=== PATIENT | female | born 1990 | race Caucasian/White ===

== ENCOUNTER 2016-07-23 17:27 | Emergency (ER) | payer OTHER ==
--- NOTE | 2016-07-23 20:23 | RAD ---
INDICATION: Left ankle injury COMPARISON: None TECHNIQUE: AP, lateral, and oblique views were obtained. FINDINGS: There is no acute fracture or dislocation. There is bilateral soft tissue swelling. IMPRESSION: LATERAL SOFT TISSUE SWELLING
--- NOTE | 2016-07-23 20:58 | UC ---
Lower Extremity/Ankle HPI - HPI Summary HPI Summary: PREVIOUS HISTORY OF LATERAL ANKLE STRESS FRACTURE. FOR TEN DAYS HAS HAD LATERAL ANKLE SWELLING AND DISCOMFORT. NO KNOWN TRAUMA. WORKS ON [employer]. NO SOB. NO CHEST PAIN. NO UNUSUAL HEART RHYTHMS. NO CALF PAIN. NO FEVERS. NO KNEE PAIN. - History of Current Complaint Chief Complaint: UCLowerExtremity Stated Complaint: FOOT SWELLING Time Seen by Provider: 07/23/16 19:42 Hx Obtained From: Patient Hx Last Menstrual Period: now Onset/Duration: Gradual Onset, Lasting Weeks, Still Present Severity Initially: Mild Severity Currently: Mild Aggravating Factor(s): Standing, Ambulation Alleviating Factor(s): Rest, Elevation, Ice Able to Bear Weight: Yes - Risk Factors Gout Risk Factors: Negative DVT Risk Factors: Negative Septic Arthritis Risk Factor: Negative - Allergies/Home Medications Allergies/Adverse Reactions: Allergies Allergy/AdvReac Type Severity Reaction Status Date / Time No Known Allergies Allergy Verified 07/23/16 17:48 Home Medications: Home Medications Calcium Carbonate-Vitamin D [Calcium 500 + D 500-125 mg-Unit] 07/23/16 [History ] PMH/Surg Hx/FS Hx/Imm Hx Previously Healthy: Yes - Surgical History Surgical History: None - Family History Known Family History: Negative: Cardiac Disease - Social History Occupation: Employed Full-time Lives: With Family Alcohol Use: Occasionally Substance Use Type: None Smoking Status (MU): Current Some Day Smoker Cessation Counseling: Patient Advised to Stop Review of Systems Constitutional: Negative Skin: Negative Eyes: Negative ENT: Negative Respiratory: Negative Cardiovascular: Negative Gastrointestinal: Negative Genitourinary: Negative Motor: Negative Neurovascular: Negative Musculoskeletal: Arthralgia - LEFT ANKLE MILD, Edema - LEFT LATERAL ANKLE, Myalgia - MILD LEFT ANKLE Neurological: Negative Psychological: Negative All Other Systems Reviewed And Are Negative: Yes Physical Exam Triage Information Reviewed: Yes Appearance: Well-Appearing, No Pain Distress, Well-Nourished Vital Signs: Initial Vital Signs Temp 98.2 F 07/23/16 17:45 Pulse 76 07/23/16 17:45 Resp 18 07/23/16 17:45 BP 142/74 07/23/16 17:45 Pulse Ox 100 07/23/16 17:45 Vital Signs Reviewed: Yes Eye Exam: Normal Eyes: Positive: Conjunctiva Clear ENT Exam: Normal ENT: Positive: Normal ENT inspection, Hearing grossly normal, Pharynx normal, TMs normal Dental Exam: Normal Neck exam: Normal Neck: Positive: Supple, Nontender, No Lymphadenopathy Respiratory Exam: Normal Respiratory: Positive: Chest non-tender, Lungs clear, No respiratory distress, No accessory muscle use Cardiovascular Exam: Normal Cardiovascular: Positive: RRR, No Murmur, Pulses Normal Abdominal Exam: Normal Abdomen Description: Positive: Nontender, No Organomegaly Musculoskeletal: Positive: Strength Intact, ROM Intact, Edema @ - LEFT LATERAL ANKLE Neurological Exam: Normal Psychological Exam: Normal Skin Exam: Normal Lower Extremity Course/Dx - Differential Dx/Diagnosis Differential Diagnosis/HQI/PQRI: Fracture (Closed), Sprain, Strain Provider Diagnoses: POSSIBLE STRESS FRACTURE LEFT LATERAL ANKLE. LEFT ANKLE STRAIN/SOFT TISSUE SWELLING Discharge - Discharge Plan Condition: Stable Disposition: HOME Patient Education Materials: Ankle Sprain (ED), Suspected Fracture (ED) Forms: *Work Release Referrals: [facility] [Outside] Marvin Muñoz MD [Medical Doctor] - No Primary Care Phys,NOPCP [Primary Care Provider] -
[2016-07-23 21:19] VITALS: BP 125/71
== END 2016-07-23 21:20 | disposition home or self-care (01) ==
LOC: UCEAST 17:27
DX: S96.912A Strain of unspecified muscle and tendon at ankle and foot level, left foot, initial encounter (principal); M25.472 Effusion, left ankle; F17.210 Nicotine dependence, cigarettes, uncomplicated
CPT/HCPCS: 99212; G0463

== ENCOUNTER 2016-12-09 10:32 | Emergency (ER) | payer OTHER ==
--- NOTE | 2016-12-09 11:40 | UC ---
Lower Extremity/Ankle HPI - HPI Summary HPI Summary: b/l lower leg swelling, right worse than left, recent travel-----family history of clotting disorder, some SOB - History of Current Complaint Chief Complaint: UCLowerExtremity Stated Complaint: FEET SWELLING Time Seen by Provider: 12/09/16 11:34 Hx Obtained From: Patient Hx Last Menstrual Period: 12/01/16 ?: No Severity Initially: Mild Severity Currently: Mild - Allergies/Home Medications Allergies/Adverse Reactions: Allergies Allergy/AdvReac Type Severity Reaction Status Date / Time No Known Allergies Allergy Verified 07/23/16 17:48 PMH/Surg Hx/FS Hx/Imm Hx Previously Healthy: Yes - Surgical History Surgical History: Yes Surgery Procedure, Year, and Place: T&A. [place] teeth - Family History Known Family History: Negative: Cardiac Disease - Social History Lives: With Family Alcohol Use: Occasionally Substance Use Type: None Smoking Status (MU): Former Smoker Review of Systems Constitutional: Negative Skin: Negative Eyes: Negative ENT: Negative Respiratory: Shortness Of Breath Cardiovascular: Negative Gastrointestinal: Negative Genitourinary: Negative Motor: Negative Neurovascular: Negative Musculoskeletal: Edema - both lower legs right more than left Neurological: Negative Psychological: Negative All Other Systems Reviewed And Are Negative: Yes Physical Exam Triage Information Reviewed: Yes Vital Signs: Initial Vital Signs Temp 98.7 F 12/09/16 11:07 Pulse 85 12/09/16 11:07 Resp 16 12/09/16 11:07 BP 137/80 12/09/16 11:07 Pulse Ox 99 12/09/16 11:07 Lower Extremity Course/Dx - Course Course Of Treatment: report given to lima CHRISTY at 12noon, pt remains in ultrasound - Differential Dx/Diagnosis Provider Diagnoses: lower leg swelling Discharge - Discharge Plan Condition: Stable Disposition: OTHER Discharge Disposition Comment: report to L[facility] Hollins 12noon Referrals: No Primary Care Phys,NOPCP [Primary Care Provider] -
[2016-12-09 12:30] VITALS: BP 120/72
--- NOTE | 2016-12-09 12:46 | RAD ---
INDICATION: Pain and swelling. COMPARISON: None TECHNIQUE: Duplex interrogation of the Lowerextremity was performed. The examination is mildly limited due to body habitus. FINDINGS: Deep veins: The common femoral, great saphenous, profunda femoris, proximal, mid, and distal deep femoral, popliteal, posterior tibial, and peroneal veins are patent. There is normal compressibility, augmentation, and phasic flow. Superficial veins: There are no findings of superficial thrombophlebitis. Popliteal fossa:There is no evidence of a popliteal cyst. Soft tissues:There are no soft tissue abnormalities. IMPRESSION: Normal examination. No evidence of deep venous thrombosis
== END 2016-12-09 13:22 | disposition home or self-care (01) ==
LOC: UCEAST 10:32
DX: R60.0 Localized edema (principal); Z32.02 Encounter for pregnancy test, result negative; Z87.891 Personal history of nicotine dependence
CPT/HCPCS: 81003; 84702; 93970; 99212; G0463

== ENCOUNTER 2017-01-04 07:38 | Emergency (ER) | payer OTHER ==
--- NOTE | 2017-01-04 07:48 | UC ---
Complaint Female HPI - HPI Summary HPI Summary: 26 YEAR OLD FEMALE PRESENTS WITH COMPLAINS OF VAGINAL DISCHARGE. - History Of Current Complaint Stated Complaint: FEVER URINARY ISSUE PERSONAL ISSUE Time Seen by Provider: 01/04/17 07:47 Hx Obtained From: Patient Hx Last Menstrual Period: 12/01/16 Onset/Duration: Sudden Onset Timing: Constant Severity Initially: Moderate Severity Currently: Moderate Pain Scale Used: 0-10 Numeric - 5 Character: Sharp, Burning, Cramping Aggravating Factor(s): Nothing Alleviating Factor(s): Nothing - Allergies/Home Medications Allergies/Adverse Reactions: Allergies Allergy/AdvReac Type Severity Reaction Status Date / Time No Known Allergies Allergy Verified 07/23/16 17:48 PMH/Surg Hx/FS Hx/Imm Hx Previously Healthy: Yes - Surgical History Surgical History: Yes Surgery Procedure, Year, and Place: T&A. [place] teeth - Family History Known Family History: Negative: Cardiac Disease - Social History Alcohol Use: Occasionally Substance Use Type: None Smoking Status (MU): Former Smoker Review of Systems Constitutional: Negative Skin: Negative Eyes: Negative ENT: Negative Respiratory: Negative Cardiovascular: Negative Gastrointestinal: Negative Genitourinary: Vaginal/Penile Discharge Motor: Negative Neurovascular: Negative Musculoskeletal: Negative Neurological: Negative Psychological: Negative All Other Systems Reviewed And Are Negative: Yes Physical Exam Triage Information Reviewed: Yes Eye Exam: Normal ENT Exam: Normal Dental Exam: Normal Neck exam: Normal Neck: Positive: 1 Respiratory Exam: Normal Cardiovascular Exam: Normal Abdominal Exam: Normal Musculoskeletal Exam: Normal Neurological Exam: Normal Psychological Exam: Normal Skin Exam: Normal Complaint Female Dx - Course Course Of Treatment: WANTS TO BE TREATED FOR UTI AND BV BUT HOLD OFF ON MARILUZ/ G/C - Differential Dx/Diagnosis Provider Diagnoses: YELLOW VAGINAL DISCHARGE Discharge - Discharge Plan Condition: Stable Disposition: HOME Prescriptions: Fluconazole [Diflucan 150 MG (NF)] 150 mg PO ONCE #1 tab Metronidazole [Flagyl 500 MG TAB] 500 mg PO BID #14 tab Nitrofurantoin Monohyd Macro [Macrobid] 100 mg PO BID #14 cap Patient Education Materials: Vaginal Discharge (ED) Referrals: No Primary Care Phys,NOPCP [Primary Care Provider] -
[2017-01-04 08:15] VITALS: BP 141/70
== END 2017-01-04 08:45 | disposition home or self-care (01) ==
LOC: UCEAST 07:38
DX: N89.8 Other specified noninflammatory disorders of vagina (principal)
CPT/HCPCS: 81003; 84702; 87086; 87480; 87491; 87510; 87591; 87660; 99212; G0463

== ENCOUNTER 2018-06-20 14:30 | Emergency (ER) | payer OTHER ==
[2018-06-20 14:49] VITALS: BP 139/78
--- NOTE | 2018-06-20 15:49 | UC ---
Skin Complaint HPI - HPI Summary HPI Summary: 27 y/o female presents to the urgent care c/o c/o fever, chills, bodyaches and pain to tailbone since 06/16/18. c/o complications form fistula surgery, developed abscess, this is the 3rd episode. - History of Current Complaint Chief Complaint: UCSkin Time Seen by Provider: 06/20/18 15:42 Stated Complaint: FEVER, BODY ACHES Hx Obtained From: Patient Hx Last Menstrual Period: 06/05/2018 ?: No Onset/Duration: Gradual Onset, Lasting Days - 2 days, Still Present, Worse Since - today Skin Exposure Onset/Duration: Days Ago - Hx of perianal abscess and fistula 2X and she thinks is coming back Timing: Constant Onset Severity: Mild Current Severity: Moderate Pain Intensity: 6 Pain Scale Used: 0-10 Numeric Location: Discrete - anal area on the left side Character: Pain Aggravating Factor(s): Touch Alleviating Factor(s): OTC Meds Associated Signs & Symptoms: Positive: Fever, Chills, Tenderness. Negative: Drainage Related History: Other: - Hx og Perianal abscess and fistula last year 2017 2X s /p surgery - Allergy/Home Medications Allergies/Adverse Reactions: Allergies Allergy/AdvReac Type Severity Reaction Status Date / Time No Known Allergies Allergy Verified 06/20/18 14:49 PMH/Surg Hx/FS Hx/Imm Hx - Surgical History Surgical History: Yes Surgery Procedure, Year, and Place: T&A. [place] teeth. FISTUAL - 05/2017 & 2017. PERIANAL ABSCESS DRNG - Family History Known Family History: Negative: Cardiac Disease - Social History Alcohol Use: Occasionally Substance Use Type: None Smoking Status (MU): Former Smoker Physical Exam Vital Signs: Initial Vital Signs Temp 99.8 F 06/20/18 14:46 Pulse 98 06/20/18 14:46 Resp 18 06/20/18 14:46 BP 139/78 06/20/18 14:46 Pulse Ox 98 06/20/18 14:46 Course/Dx - Differential Diagnoses - Skin Complaint Differential Diagnoses: Abscess, Cellulitis, MRSA, Other - perianal abscess - Diagnoses Provider Diagnosis: Anal or rectal pain, Perianal abscess Discharge - Sign-Out/Discharge Documenting (check all that apply): Patient Departure - D/C home All imaging exams completed and their final reports reviewed: No Studies - Discharge Plan Condition: Stable Disposition: HOME Prescriptions: Amoxicillin/Clavulanate TAB* [Augmentin TAB 875*] 875 mg PO BID #20 tab Polyethylene Glycol 3350* [Miralax*] 17 gm PO DAILY #1 bottle Patient Education Materials: Constipation (ED), Anorectal Abscess and Anal Fistula (ED) Referrals: Binta Phelan MD [Primary Care Provider] - 2 Days Blaine Hawkins MD [Medical Doctor] - 2 Days Additional Instructions: 1- Please take Augmentin PO antibiotic as directed to avoid resistance to alleviate symptoms of your perianal fistula. 2- Take Miralax PO as directed to softed your stool and regulate constipation. Increase fluid intake, eat soft meals and as your symptoms improve advance to your regular diet. Then start eating fiber in your diet 3- continue taking Ibuprofen PO q6-8hrs prn after meals to alleviate pain. 4- Please f/u with your Colorectal DR Ross in 2-3 days for further management on your Perianal abscess and fistula.. 5- If symptoms do not improve and severe anal pain and fever is not controlled despite taking antibiotics please go immediately to the ER for further evaluation and treatment - Billing Disposition and Condition Condition: STABLE Disposition: Home
== END 2018-06-20 16:18 | disposition home or self-care (01) ==
LOC: UCEAST 14:30
DX: K61.0 Anal abscess (principal)
CPT/HCPCS: 99212; G0463

== ENCOUNTER 2018-11-04 14:45 | Emergency (ER) | payer OTHER ==
[2018-11-04 14:54] VITALS: BP 126/77
--- NOTE | 2018-11-04 14:56 | UC ---
UC General HPI - History of Current Complaint Chief Complaint: UCDizziness Stated Complaint: high blood pressure, AND TINGLING IN EXTREMITIES Time Seen by Provider: 11/04/18 14:56 Hx Last Menstrual Period: began 4 days ago Pain Intensity: 0 - Allergy/Home Medications Allergies/Adverse Reactions: Allergies Allergy/AdvReac Type Severity Reaction Status Date / Time No Known Allergies Allergy Verified 11/04/18 14:54 Home Medications: Home Medications NK [No Home Medications Reported] 11/04/18 [History Confirmed 11/04/18] PMH/Surg Hx/FS Hx/Imm Hx - Surgical History Surgical History: Yes Surgery Procedure, Year, and Place: T&A. [place] teeth. FISTUAL - 05/2017 & 2017. PERIANAL ABSCESS DRNG - Family History Known Family History: Negative: Cardiac Disease - Social History Alcohol Use: Weekly Substance Use Type: None Smoking Status (MU): Never Smoked Tobacco Physical Exam Vital Signs: Initial Vital Signs Temp 99.6 F 11/04/18 14:49 Pulse 61 11/04/18 14:49 Resp 16 11/04/18 14:49 BP 126/77 11/04/18 14:49 Pulse Ox 100 11/04/18 14:49 Discharge - Discharge Plan Referrals: Binta Phelan MD [Primary Care Provider] -
--- NOTE | 2018-11-04 15:35 | UC ---
Dizzy HPI HPI Summary: 28-year-old female presents with multiple complaints. Patient states around 11 AM she said her hands were turning purple, she then had some left arm and leg tingling. Patient then also felt lightheaded. Her blood pressure checked it was 150 systolic so she became concerned and presented to urgent care. Patient denies a history of hypertension. The patient states that left leg paresthesias have resolved, and left arm almost completely resolved. She denies headache but does feel that she has tunnel vision. Patient did not pass out, or strike head. Patient denies chest pain or shortness of breath. - History Of Current Complaint Chief Complaint: UCDizziness Stated Complaint: high blood pressure, AND TINGLING IN EXTREMITIES Time Seen by Provider: 11/04/18 14:56 Hx Last Menstrual Period: began 4 days ago Pain Intensity: 0 - Allergies/Home Medications Allergies/Adverse Reactions: Allergies Allergy/AdvReac Type Severity Reaction Status Date / Time No Known Allergies Allergy Verified 11/04/18 14:54 Home Medications: Home Medications NK [No Home Medications Reported] 11/04/18 [History Confirmed 11/04/18] PMH/Surg Hx/FS Hx/Imm Hx Previously Healthy: Yes GI/ History: Other - History of fistula - Surgical History Surgical History: Yes Surgery Procedure, Year, and Place: T&A. [place] teeth. FISTUAL - 05/2017 & 2017. PERIANAL ABSCESS DRNG - Family History Known Family History: Negative: Cardiac Disease - Social History Alcohol Use: Weekly Substance Use Type: None Smoking Status (MU): Never Smoked Tobacco Review of Systems All Other Systems Reviewed And Are Negative: Yes Eyes: Positive: Other - Tunnel vision Neurovascular: Positive: Decreased Sensation Physical Exam - Summary Physical Exam Summary: Constitutional: Well-developed, Well-nourished, Alert. (-) Distressed Skin: Warm, Dry HENT: Normocephalic; Atraumatic Eyes: Conjunctiva normal Neck: Musculoskeletal ROM normal neck. (-) JVD Cardio: Rhythm regular, rate normal, Heart sounds normal; Intact distal pulses; Radial pulses are 2+ and symmetric. (-) Murmur Pulmonary/Chest wall: Effort normal. (-) Respiratory distress, (-) Wheezes, (-) Rales Abd: Soft. (-) Tenderness, (-) Distension, (-) Guarding, (-) Rebound Musculoskeletal: (-) Edema Lymph: (-) Cervical adenopathy Neuro: Alert, Oriented x3, Strength normal, Cranial nerves II-XII are grossly intact. (-) Dysmetria, (-) Nystagmus, (-) Ataxia by finger to nose testing, (-) Sensory deficit. Intact light touch bilateral lower extremities. Patient reports band of paresthesia near her left armpit however no other sensation deficits noted Psych: Mood and affect Normal Vital Signs: Initial Vital Signs Temp 37.6 C 11/04/18 14:49 Pulse 61 11/04/18 14:49 Resp 16 11/04/18 14:49 BP 126/77 11/04/18 14:49 Pulse Ox 100 11/04/18 14:49 Diagnostics - EKG Summary of EKG Findings: Sinus 64, normal CA and QTc, no ischemic changes. Dizzy Course/Dx - Course Course Of Treatment: 28-year-old female presents with various complaints. NIHSS 0. Neuro exam unremarkable aside bandlike paresthesia of the left upper arm, do not suspect TIA or stroke given multiple symptoms and resolving paresthesias. EKG sinus, no ischemia. Patient to go to the emergency department. Her is going to come pick her up and bring her - Differential Dx/Diagnosis Provider Diagnosis: Arm paresthesia, left, Light-headed Discharge - Sign-Out/Discharge Documenting (check all that apply): Patient Departure All imaging exams completed and their final reports reviewed: No Studies - Discharge Plan Condition: Stable Disposition: HOME-RECOMMEND TO ED Patient Education Materials: Paresthesia (ED), Near Syncope (ED) Referrals: Binta Phelan MD [Primary Care Provider] - Additional Instructions: You were seeen at urgent care for hand and leg numbness, lightheadedness. We advise you to the emergency department for further evaluation. Please seek medical attention or go to the emergency department for any worsening or concerning symptoms. Please follow up with your primary care doctor in 2-3 days. It was a pleasure taking care of you today. - Billing Disposition and Condition Condition: STABLE Disposition: Home-Recommend to ED
== END 2018-11-04 15:59 | disposition home health service (06) ==
LOC: UCEAST 14:45
DX: R42 Dizziness and giddiness (principal); R20.2 Paresthesia of skin
CPT/HCPCS: 93005; 99212; G0463

== ENCOUNTER 2018-11-04 16:25 | Emergency (ER) | payer OTHER ==
--- NOTE | 2018-11-04 17:16 | ED ---
Neurological HPI - HPI Summary HPI Summary: The patient is a 28 y/o F presenting to [facility] accompanied by with a chief complaint of sudden onset tingling in the LUE and LLE starting at 1200 today. She reports that she was sitting eating lunch when she began to have cyanotic skin in the hands, and then the left arm began to tingle, and there was tingling going down the left leg. She took her BP (using an animal cuff), which read 151/104. She went to Urgent Care, where she was experiencing tunnel vision and lightheadedness, and her BP was 142/64. The tunnel vision and lightheadedness have resolved, but she is now experiencing numbness in the dorsal left hand. She denies LEWIS, neck stiffness, fever, chills, erythema of eyes , sore throat, CP, SOB, cough, abdominal pain, N/V, dysuria, hematuria, myalgia , edema, rash, or dizziness. She is not currently in any pain. Hx of asthma. FHx of cardiac disease, circulation conditions, and blood clots. Nonsmoker, weekly EtOH, no substance use. - History of Current Complaint Chief Complaint: EDNeurologicalDeficit Stated Complaint: TINGLING IN LT ARM AND LEG PER PT Time Seen by Provider: 11/04/18 16:47 Hx Obtained From: Patient Hx Last Menstrual Period: began 4 days ago Onset/Duration: Sudden Onset, Started hours ago - 1200, Still Present Timing: Sudden Onset Onset Severity: Moderate Current Severity: Mild Neurological Deficit Location: LUE, LLE Pain Intensity: 0 Pain Scale Used: 0-10 Numeric Character: Lightheaded, Numbness/Tingling, Other: - tunnel vision Aggravating: Nothing Alleviating: Nothing Associated Signs and Symptoms: Positive: Numbness - left hand, Lightheadness. Negative: Dizziness, Pain, Nausea/Vomiting, Fever, Chest Pain, Shortness of Breath - Allergy/Home Medications Allergies/Adverse Reactions: Allergies Allergy/AdvReac Type Severity Reaction Status Date / Time No Known Allergies Allergy Verified 11/04/18 14:54 PMH/Surg Hx/FS Hx/Imm Hx Endocrine/Hematology History: Denies: Hx Diabetes Cardiovascular History: Denies: Hx Hypertension, Hx Pacemaker/ICD Respiratory History: Reports: Hx Asthma History: Denies: Hx Renal Disease Sensory History: Denies: Hx Hearing Aid Psychiatric History: Denies: Hx Panic Disorder - Surgical History Surgical History: Yes Surgery Procedure, Year, and Place: T&A. [place] teeth. FISTUAL - 05/2017 & 2017. PERIANAL ABSCESS DRNG Infectious Disease History: No Infectious Disease History: Denies: Hx Clostridium Difficile, Hx Hepatitis, Hx Human Immunodeficiency Virus (HIV), Hx of Known/Suspected MRSA, Hx Shingles, Hx Tuberculosis, Hx Known/ Suspected VRE, Hx Known/Suspected VRSA, History Other Infectious Disease, Traveled Outside the [place] in Last 30 Days - Family History Known Family History: Positive: Cardiac Disease, Other - circulation conditions , blood clots - Social History Alcohol Use: Weekly Hx Substance Use: No Substance Use Type: Reports: None Hx Tobacco Use: No Smoking Status (MU): Never Smoked Tobacco Review of Systems Negative: Fever, Chills Positive: Other - tunnel vision (resolved). Negative: Erythema Negative: Sore Throat Negative: Chest Pain Negative: Shortness Of Breath, Cough Negative: Abdominal Pain, Vomiting, Nausea Negative: dysuria, hematuria Positive: Other - NEGATIVE: neck stiffness. Negative: Myalgia, Edema Positive: Other - cyanotic hands. Negative: Rash Neurological: Other - POSITIVE: lightheaded, tingling in LUE and LLE; NEGATIVE: dizziness Positive: Numbness - in left hand. Negative: Headache All Other Systems Reviewed And Are Negative: Yes Physical Exam - Summary Physical Exam Summary: Constitutional: Well-developed, Well-nourished, Alert. (-) Distressed Skin: Warm, Dry HENT: Normocephalic; Atraumatic Eyes: Conjunctiva normal Neck: Musculoskeletal ROM normal neck. (-) JVD, (-) Stridor, (-) Tracheal deviation Cardio: Rhythm regular, rate normal, Heart sounds normal; Intact distal pulses; The pedal pulses are 2+ and symmetric. Radial pulses are 2+ and symmetric. (-) Murmur Pulmonary/Chest wall: Effort normal. (-) Respiratory distress, (-) Wheezes, (-) Rales Abd: Soft, (-) tenderness, (-) Distension, (-) Guarding, (-) Rebound Musculoskeletal: (-) Edema Lymph: (-) Cervical adenopathy Neuro: Alert, Oriented x3, Diminished sensation over dorsum of the left hand to left forearm but otherwise symmetric, Strength normal, Cranial nerves II-XII are grossly intact. (-) Dysmetria, (-) Nystagmus, (-) Ataxia by finger to nose testing, (-) Sensory deficit. GCS: 15. Psych: Mood and affect Normal Triage Information Reviewed: Yes Vital Signs On Initial Exam: Initial Vitals Temp Pulse Resp BP Pulse Ox 99.7 F 70 18 151/86 100 11/04/18 16:27 11/04/18 16:27 11/04/18 16:27 11/04/18 16:27 11/04/18 16:27 Vital Signs Reviewed: Yes - Neil Coma Scale Best Eye Response: 4 - Spontaneous Best Motor Response: 6 - Obeys Commands Best Verbal Response: 5 - Oriented Coma Scale Total: 15 Diagnostics - Vital Signs Vital Signs Temp Pulse Resp BP Pulse Ox 11/04/18 16:27 99.7 F 70 18 151/86 100 - Laboratory Result Diagrams: 11/04/18 17:40 11/04/18 17:40 Lab Statement: Any lab studies that have been ordered have been reviewed, and results considered in the medical decision making process. - CT Brain CT CT Interpretation Completed By: Radiologist Summary of CT Findings: Impression: No acute intracranial pathology. ED physician has reviewed this report. - EKG 1710 Cardiac Rate: NL - 65 bpm EKG Rhythm: Sinus Rhythm Summary of EKG Findings: NSR at 65 bpm. No STEMI. Re-Evaluation - Re-Evaluation First Eval Re-Evaluation Time: 18:15 Comment: I spoke with patient concerning results thus far. Course/Dx - Course Course Of Treatment: Patient is a 28 y/o F with cc of sudden onset cyanosis of the hands with tingling up the left arm and down the left leg while at rest at 1200, as well as lightheadedness, tunnel vision, and numbness in the left hand starting after initial onset of symptoms. Denies LEWIS, neck stiffness. Symptoms mostly resolved in ED. FHx of cardiac disease, circulation conditions, and blood clots. Upon physical exam, the patient exhibits diminished sensation over dorsum of the left hand to left forearm but neuro exam is otherwise symmetric. Blood work reveals no abnormalities. EKG at 1710 reveals NSR at [address] is negative for acute intracranial pathology. I spoke with Dr. Collins, Strong neurologist, who recommends Brain and C-Spine MRIs as conservative measures given FHx of venous thrombus. Geiven rapid course and no other risk factors, the suspicion for CVA or TIA is very unlikely. She is diagnosed with paresthesias and Raynauds phenomenon. The patient is a sign-out from Dr. Lorne Hein MD, to Dr. Christopher Prabhakar MD, at change of shift at 1900 on 11/04/2018 , pending Brain MRI, Cervical Spine MRI, and disposition. - Diagnoses Provider Diagnoses: Paresthesia, Raynauds disease - Physician Notifications Discussed Care Of Patient With: Dr. Collins - [facility] Time Discussed With Above Provider: 18:00 Instructed by Provider To: Other - I spoke with Dr. Collins, who recommends Brain and C-Spine MRIs as conservative measures given FHx of venous thrombus. Discharge - Sign-Out/Discharge Documenting (check all that apply): Sign-Out Patient Signing out patient TO: Christopher Prabhakar - Patient is a sign-out to Dr. Christopher Prabhakar MD, at change of shift pending Brain MRI, Cervical Spine MRI, and disposition. Patient Received Moderate/Deep Sedation with Procedure: No - Discharge Plan Referrals: Binta Phelan MD [Primary Care Provider] - - Attestation Statements Document Initiated by Scribe: Yes Documenting Scribe: Rachael Boucher Provider For Whom Scribe is Documenting (Include Credential): Dr. Lorne Hein MD Scribe Attestation: Rachael Thompson, scribed for Dr. Lorne Hein MD on 11/04/18 at 1950. Status of Scribe Document: Ready
[2018-11-04 17:57] LABS: ABS Basophils 0.1 10^3/ul (0-0.2); ABS Eosinophils 0.1 10^3/ul (0-0.6); ABS Lymphocytes 2.4 10^3/ul (1.0-4.8); ABS Monocytes 0.4 10^3/ul (0-0.8); ABS Neutrophils 3.9 10^3/ul (1.5-7.7); Eosinophil % 1.7 %; Hematocrit 41 % (35-47); Hemoglobin 14.1 g/dL (12.0-16.0); Lymphocyte % 34.9 %; Mean Corpuscular HGB Conc 34 g/dL (31-36); Mean Corpuscular Hemoglobin 30 pg (27-31); Mean Corpuscular Volume 88 fL (80-97); Mean Platelet Volume 8.2 fL (7.4-10.4); Platelet Count 266 10^3/uL (150-450); Red Blood Count 4.69 10^6 /uL (3.70-4.87); Red Cell Distribution Width 13 % (10-15)
[2018-11-04 18:08] LABS: Albumin 4.7 g/dL (3.2-5.2); Albumin/Globulin Ratio 1.6 (1-3); BUN/Creatinine Ratio 15.4 (8-20); Calcium 10.3 mg/dL (8.6-10.3); EGFR African American 131.3 (>60); EGFR Non-African American 108.5 (>60); HDL Cholesterol 56.4 mg/dL; Potassium 3.8 mmol/L (3.5-5.0); Total Protein 7.7 g/dL (6.4-8.9)
[2018-11-04 18:14] LABS: Activated Partial Thrombo Time 36.7 seconds (26.0-38.0); INR 1.09 (0.82-1.09)
[2018-11-04] MEDS ORDERED: Gadoteridol* (CONTRAST) 279.3 MG/ML 10 ML IV ONE (18:23)
--- NOTE | 2018-11-04 19:14 | ED ---
Progress - Progress Note Progress Note: This pt was a sign out from Dr. Hein to Dr. Prabhakar at shift change on 11/04/18 at 19:00 pending brain MRI and c-spine MRI. Brain MRI, as read by radiologist IMPRESSION: 1. No acute intracranial abnormality 2. No convincing imaging features of demyelination. Cervical spine MRI, as read by radiologist IMPRESSION: No abnormal cord signal. Dr. Prabhakar has reviewed these reports. Re-Evaluation - Re-Evaluation First Eval Re-Evaluation Time: 18:15 Comment: I spoke with patient concerning results thus far. Course/Dx - Course Course Of Treatment: Pt was signed out by Dr. Hein pending MRI brain and MRI cervical spine. Brain MRI shows 1. No acute intracranial abnormality. 2. No convincing imaging features of demyelination. Cervical spine MRI shows no abnormal cord signal. Therefore pt will be discharged home with follow up from her PCP. - Diagnoses Provider Diagnoses: Paresthesia Discharge - Sign-Out/Discharge Documenting (check all that apply): Patient Departure - Discharge home, Receiving Sign-Out Receiving patient FROM: Lorne Hein Patient Received Moderate/Deep Sedation with Procedure: No - Discharge Plan Condition: Good Disposition: HOME Patient Education Materials: Paresthesia (ED) Referrals: Binta Phelan MD [Primary Care Provider] - Additional Instructions: Your MRI scan is normal, there is no sign of a stroke or other neurologic problem developing. I would ask that you contact your PCP for followup, you may require further evaluation if your symptoms persist. - Billing Disposition and Condition Condition: GOOD Disposition: Home - Attestation Statements Document Initiated by Ryan: Yes Documenting Scribe: Opal Manuel Provider For Whom Ryan is Documenting (Include Credential): Christopher Prabhakar MD Scribe Attestation: I, Opal Manuel, scribed for Christopher Prabhakar MD on 11/05/18 at 1938. Scribe Documentation Reviewed: Yes Provider Attestation: The documentation as recorded by the Opal de anda accurately reflects the service I personally performed and the decisions made by me, Christopher Prabhakar MD Status of Scribe Document: Viewed
[2018-11-04 21:11] VITALS: BP 134/84
== END 2018-11-04 21:10 | disposition home or self-care (01) ==
LOC: ED 16:25
DX: R20.2 Paresthesia of skin (principal); I73.00 Raynaud's syndrome without gangrene; J45.909 Unspecified asthma, uncomplicated
CPT/HCPCS: 36415; 70450; 70553; 72156; 80053; 80061; 81025; 83605; 84484; 85025; 85610; 85730; 86141; 93005; 99282; A9579

== ENCOUNTER 2019-06-25 07:29 | Emergency (ER) | payer SELFPAY ==
--- OUTSIDE RECORDS SUMMARY | 2019-06-25 07:34 | XMS REPORT | Continuity of Care Document ---
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 fistula Blaine Hawkins MD Onset: 06/07/2019 Social History Description No Information Available Allergies, Adverse Reactions, Alerts Description No Information Available Medications Active Medications SIG Qnty Indications Ordering Provider Date Amoxicillin/Clavulan Augmentin 500-125 30tabs Unknown 07/28/2018 ate Potassium MG Tabs 500-125mg Tablets Amoxicillin/Clavulan Augmentin 875-125 Unknown ate Potassium MG Tabs 875-125mg Tablets Immunizations Description No Information Available Vital Signs Date Vital Result Comment 06/07/2019 3:07pm BP Systolic 122 mmHg BP Diastolic 68 mmHg Body Temperature 98.0 F Respiratory Rate 16 /min Height 71 inches 5'11" Weight 205.00 lb BMI (Body Mass Index) 28.6 kg/m2 01/21/2019 5:22pm BP Systolic 122 mmHg BP Diastolic 71 mmHg Heart Rate 71 /min Body Temperature 97.2 F Respiratory Rate 16 /min Weight 218.00 lb BMI (Body Mass Index) 30.40 kg/m2 Results Description No Information Available Procedures Description No Information Available Medical Devices Description No Information Available Encounters Type Date Location Provider Dx Diagnosis Office Visit 06/07/2019 3:00p [facility] Blaine Hawkins MD K60.3 Anal fistula Assessments Date Code Description Provider 06/07/2019 K60.3 Perianal fistula Blaine Hawkins MD Plan of Treatment No Information Available Functional Status Description No Information Available Mental Status Description No Information Available Referrals Description No Information Available
[2019-06-25 07:38] VITALS: BP 123/71
--- NOTE | 2019-06-25 07:49 | UC ---
Ear Complaint HPI - HPI Summary HPI Summary: CHIEF COMPLAINT: Left ear pain HPI: This is a healthy 28-year-old female with a complaint of 2 weeks of left ear pain, 07/14. Pain is worse with lying down. It is slightly relieved by standing and walking around. 4 weeks ago she developed a URI. She is no complaints of discomfort behind her left ear or pain in her right ear. She has a mild cough. She has not had a fever. VITAL SIGNS REVIEWED. Within normal limits unless noted here. NURSES NOTE REVIEWED. " Pt stated that a month ago she started with a cold. Pt now c/o left ear pain x2 weeks. Worse at night" - History of Current Complaint Chief Complaint: UCEar Stated Complaint: EAR PAIN Time Seen by Provider: 06/25/19 07:41 Hx Obtained From: Patient Hx Last Menstrual Period: 06/05/2019 Pain Intensity: 4 - Allergies/Home Medications Allergies/Adverse Reactions: Allergies Allergy/AdvReac Type Severity Reaction Status Date / Time No Known Allergies Allergy Verified 06/25/19 07:38 Home Medications: Home Medications Amoxicillin PO (*) [Amoxicillin 875 MG (*)] 875 mg PO BID #14 tab MDD 2 [Rx] Multivitamin,Ther and Minerals [Vitamins & Minerals] 1 tab PO DAILY 06/25/19 [ History Confirmed 06/25/19] PMH/Surg Hx/FS Hx/Imm Hx - Additional Past Medical History Additional PMH: PAST MEDICAL HISTORY- CHRONIC and RECURRENT HEALTH PROBLEM LIST REVIEWED. Positive for asthma. Information relevant to present complaint: VISIT HISTORY REVIEWED. MEDICATIONS & ALLERGIES REVIEWED. None HYPERTENSION STATUS: No current hypertension problems. FAMILY HISTORY Positive for hypertension, DM. SOCIAL HISTORY: Smoker: no Home: , who is well Employment: [employer] Previously Healthy: Yes - Surgical History Surgical History: Yes Surgery Procedure, Year, and Place: T&A. [place] teeth. FISTUAL - 05/2017 & 2017. PERIANAL ABSCESS DRNG - Family History Known Family History: Positive: Cardiac Disease, Other - circulation conditions , blood clots - Social History Alcohol Use: Weekly Substance Use Type: None Smoking Status (MU): Never Smoked Tobacco Review of Systems All Other Systems Reviewed And Are Negative: Yes ENT: Positive: Ear Ache, Sinus Pain/Tenderness Cardiovascular: Positive: Negative Gastrointestinal: Positive: Negative Genitourinary: Positive: Negative Is Patient Immunocompromised?: No Physical Exam - Summary Physical Exam Summary: Appearance: The patient is well-appearing, is in no pain or distress, and is well-nourished. Eyes: Conjunctiva are clear. Pupils are equal and reactive to light and accommodation. Extra ocular muscle movement is intact. ENT: The hearing is grossly normal, the pharynx is normal, and the right TM is normal. There is no muffled or hoarse voice. No stridor. Examination of the left TM shows mild injection with fluid behind the tympanic membrane. Neck: The neck is supple and there is no lymphadenopathy. Respiratory: The chest is non-tender to palpation and without crepitus. The lungs are clear, there are normal breath sounds, and there is no respiratory distress. No wheezes, rales or rhonchi. Cardiovascular: Heart sounds reveal a regular rate and rhythm. There are no clicks, rubs or murmurs. There are no carotid bruits or thrills. Circulation is grossly intact. Abdomen: The abdomen is soft and nontender. There is no organomegaly. Bowel sounds are present and within normal limits. No point tenderness at McBurneys point. No CVA tenderness. Musculoskeletal: Strength is intact. The patient moves all extremities. Neurological: The patient is alert. Motor and sensory are examination grossly intact. Speech is normal. Psychological: The patient displays age appropriate behavior, and is conversant. GCS=15. Skin: Negative for rashes. Triage Information Reviewed: Yes Vital Signs: Initial Vital Signs Temp 97.9 F 06/25/19 07:36 Pulse 75 06/25/19 07:36 Resp 16 06/25/19 07:36 BP 123/71 06/25/19 07:36 Pulse Ox 100 06/25/19 07:36 Vital Signs Reviewed: Yes Ear Complaint Course/Dx - Course Course Of Treatment: This is a healthy 28-year-old female with a complaint of 2 weeks of left ear pain, 4/10. Pain is worse with lying down. It is slightly relieved by standing and walking around. 4 weeks ago she developed a URI. She is no complaints of discomfort behind her left ear or pain in her right ear. She has a mild cough. She has not had a fever. Vital signs are stable. Patient is afebrile. Examination of the left ear shows fluid behind the left eardrum with slight erythema of the tympanic membrane. My diagnosis is left otitis media. I will treat her with amoxicillin twice a day for 7 days. I've given her instructions to follow-up if his condition does not resolve. - Differential Dx/Diagnosis Differential Diagnosis/HQI/PQRI: Foreign Body, Otitis Media, Perforated TM, Pharyngitis, URI Provider Diagnosis: Otitis media Discharge ED - Sign-Out/Discharge Documenting (check all that apply): Patient Departure All imaging exams completed and their final reports reviewed: No Studies - Discharge Plan Condition: Stable Disposition: HOME Prescriptions: Amoxicillin PO (*) [Amoxicillin 875 MG (*)] 875 mg PO BID #14 tab MDD 2 Patient Education Materials: Ear Infection (ED) Referrals: Bnita Phelan MD [Primary Care Provider] - Additional Instructions: WE DISCUSSED: PLEASE SEEK CARE AT THE EMERGENCY DEPARTMENT IF SYMPTOMS WORSEN OR IF NEW SYMPTOMS DEVELOP. FOLLOW UP WITH YOUR PRIMARY CARE PHYSICIAN IF CONDITION CONTINUES BEYOND 3 DAYS WITHOUT IMPROVEMENT. YOUR DIAGNOSIS IS: LEFT EAR INFECTION YOUR PRESCRIPTION RECOMMENDATION IS: AMOXICILLIN, TWICE A DAY FOR 7 DAYS FOR PAIN AND/OR SLEEP: For pain: Ibuprofen (Motrin and other brand names) 400-600mg PLUS acetaminophen (Tylenol and other brand names) 500mg - 1000mg every 8 hours. DO NOT TAKE IBUPROFEN IF YOU ARE BEING EVALUATED FOR COVID-19. OTHER INSTRUCTIONS: Your history and examination are consistent with an ear infection. Drink plenty of fluids to avoid dehydration especially if you are running any fever. You want to try to clear the congestion in your ears. By using heat, especially moist heat, you will help drain the fluid behind your ear drum. Use warm, salt water gargles several times a day. machining technician a warm shower and let the water warm your face. Warm water or heating pad to the area of your discomfort. Take over the counter acetaminophen (Tylenol) or ibuprofen (Advil, Motrin) according to directions as needed for pain or fever. Return here or follow up with your primary care provider in 3-5 days if symptoms persist. Seek immediate medical attention in the emergency room if you have fever greater than 100.5 F despite taking acetaminophen or ibuprofen, are unable to swallow or develop drooling, are unable to open your mouth fully, are unable to eat or drink, have pain that is not relieved with over the counter pain medication, or have any difficulty breathing. Recheck at any time if you start to have pain in the area behind your ear. Call your doctor for follow up if this is a recurrent condition. Your health care provider can look at your ears to make sure the infection is completely cleared. - Billing Disposition and Condition Condition: STABLE Disposition: Home
== END 2019-06-25 07:57 | disposition home or self-care (01) ==
LOC: UCEAST 07:29
DX: H66.92 Otitis media, unspecified, left ear (principal); R05 Cough
CPT/HCPCS: 99211; G0463